=== PATIENT | male | born 1990 | race Caucasian/White ===

== ENCOUNTER 2021-10-25 15:56 | Emergency (ER) | payer BC, OTHER ==
[2021-10-25] MEDS ORDERED: ceFAZolin 1 GM Vial IVPUSH ONE (16:26)
[2021-10-25 16:55] VITALS: PULSE 88
[2021-10-25] MEDS ORDERED: Morphine 2 MG/ML SYRINGE IVPUSH ONE (17:05)
[2021-10-25] MEDS ORDERED: Lidocaine 1% 5 ML VIAL INJECT ONE (17:13)
[2021-10-25] MEDS ORDERED: Bacitracin/Neomycin/Polymyxin B Oint 0.9 GM U/D Packet ONE (17:35)
[2021-10-25 19:10] VITALS: BP 160/89
== END 2021-10-25 18:03 | disposition home or self-care (01) ==
LOC: LL.ED 15:56
DX: S71.131A Puncture wound without foreign body, right thigh, initial encounter (principal); I16.0 Hypertensive urgency; Z79.899 Other long term (current) drug therapy; Z72.0 Tobacco use; W26.0XXA Contact with knife, initial encounter
CPT/HCPCS: 12001; 73564; 96374; 99283; J0690